=== PATIENT | male | born 1960 | race Caucasian/White ===

== ENCOUNTER 2023-07-21 07:08 | Inpatient (IN) ==
[2023-07-21] MEDS ORDERED: Al Hydrox/Mg Hydrox/Simet LIQ 30 ML UDC PO PRN (09:01)
[2023-07-21] MEDS: CAPLYTA 42 MG PO SCH (22:08)
[2023-07-22] MEDS: OLANZapine 5 mg TAB *ODT PO PRN (05:13)
[2023-07-22] MEDS: AUSTEDO 24 MG PO SCH (09:28)
[2023-07-22] MEDS: Aspirin EC 81 mg TAB.EC (enteric coated) PO SCH (09:29)
[2023-07-22] MEDS: CMC:Meloxicam 7.5 mg TAB (NF) PO SCH (10:22)
[2023-07-23 08:05] LABS: ABS Eosinophils 0.1 10^3/uL (0.0-0.5); ABS Lymphocytes 1.5 10^3/uL (1.0-4.8); ABS Monocytes 0.7 10^3/uL (0.0-1.1); ABS Neutrophils 6.3 10^3/uL (1.5-7.6); Eosinophil % 1.1 %; Hematocrit 37.5 % (38-53); Hemoglobin 12.7 g/dL (13.2-16.3); Lymphocyte % 17.7 %; Mean Corpuscular Hemoglobin 30.2 pg (27-33); Mean Corpuscular Hgb Conc 33.8 g/dL (31-36); Mean Corpuscular Volume 89.4 fL (80-97); Platelet Count 254 10^3/uL (150-450); Red Cell Distribution Width 16.3 % (12-17); White Blood Count 8.7 10^3/uL (3.6-10.2)
[2023-07-23 08:30] LABS: Albumin 3.7 g/dL (3.2-5.2); Albumin/Globulin Ratio 1.5 (1-3); Calcium 8.7 mg/dL (8.6-10.3); Creatinine, Serum 0.88 mg/dL (0.67-1.17); Globulin 2.4 g/dL (2-4); Potassium 4.4 mmol/L (3.5-5.0); Total Bilirubin 0.7 mg/dL (0.2-1.0); Total Protein 6.1 g/dL (6.4-8.9); eGFR CKD-EPI 96.6 (>60)
[2023-07-23 08:43] LABS: TSH Ultra Thyroid Stim Horm 0.57 mcIU/mL (0.34-5.60)
[2023-07-23 09:14] VITALS: BP 101/84
== END 2023-07-23 12:45 | disposition home or self-care (01) | DRG 885 ==
LOC: ED 07:08 → EDHOLD 09:01 → BSU 10:00
PROVIDERS: ADMIT Psychiatry & Neurology Psychiatry; ATTEND Student in an Organized Health Care Education/Training Program

== ENCOUNTER 2023-08-05 00:19 | Inpatient (IN) ==
[2023-08-05 01:19] LABS: ABS Basophils 0.1 10^3/uL (0.0-0.1); ABS Lymphocytes 1.6 10^3/uL (1.0-4.8); ABS Monocytes 0.8 10^3/uL (0.0-1.1); ABS Neutrophils 7.6 10^3/uL (1.5-7.6); ABS Nucleated RBC 0.01 10^3/ul; Eosinophil % 0.2 %; Hematocrit 38.1 % (38-53); Hemoglobin 12.9 g/dL (13.2-16.3); Lymphocyte % 15.9 %; Mean Corpuscular Hemoglobin 29.9 pg (27-33); Mean Corpuscular Hgb Conc 33.8 g/dL (31-36); Mean Corpuscular Volume 88.5 fL (80-97); Mean Platelet Volume 7.6 fL (7.5-11.2); Nucleated Red Blood Cells % 0.1 %/100WBC (0.0-0.8); Platelet Count 272 10^3/uL (150-450); Red Cell Distribution Width 16.6 % (12-17); White Blood Count 10.2 10^3/uL (3.6-10.2)
[2023-08-05 02:03] LABS: ALT 22 U/L (7-52); AST 21 U/L (13-39); Acetaminophen < 15 mcg/mL; Albumin 4.7 g/dL (3.2-5.2); Alcohol, S < 13 mg/dL (<13); Alkaline Phosphatase 104 U/L (35-149); Anion Gap 7 mmol/L (2-16); Blood Urea Nitrogen 9 mg/dL (6-24); CO2 Carbon Dioxide 30 mmol/L (22-32); Calcium 10.3 mg/dL (8.6-10.3); Chloride 99 mmol/L (101-111); Creatinine, Serum 0.86 mg/dL (0.67-1.17); Globulin 2.4 g/dL (2-4); Glucose 90 mg/dL (70-100); Salicylate < 2.50 mg/dL (<30); Sodium 136 mmol/L (135-145); Total Bilirubin 0.9 mg/dL (0.2-1.0); Total Protein 7.1 g/dL (6.4-8.9); eGFR CKD-EPI 97.3 (>60)
[2023-08-05 02:04] LABS: Urine Benzodiazepine Screen None Detected (None Detect); Urine Cannabinoids Screen None Detected (None Detect); Urine Opiates Screen None Detected (None Detect)
[2023-08-05 02:11] LABS: Urine Appearance Clear; Urine Bilirubin Negative (Negative); Urine Blood Negative (Negative); Urine Color Colorless; Urine Glucose Negative (Negative); Urine Ketones Negative (Negative); Urine Nitrite Negative (Negative); Urine Protein Negative (Negative); Urine Specific Gravity 1.004 (1.002-1.030); Urine Urobilinogen Negative (Negative)
[2023-08-05 02:16] LABS: TSH Ultra Thyroid Stim Horm 2.76 mcIU/mL (0.34-5.60)
[2023-08-05 03:11] LABS: Urine Bacteria Absent /HPF (Absent); Urine Red Blood Cell Absent /HPF (0-Trace); Urine Squamous Epithelial Cell Present /HPF (Absent); Urine White Blood Cell Trace(0-5/hpf) /HPF (0-Trace)
[2023-08-05] MEDS: Vitamin THERAPEUTIC TAB PO SCH (09:00)
[2023-08-05] MEDS: Meloxicam 7.5 mg TAB (NF) PO SCH (10:31)
[2023-08-05] MEDS: OLANZapine 10 mg TAB*ODT PO PRN (12:40)
[2023-08-05] MEDS: LUMATEPERONE 42 MG PO SCH (21:13)
[2023-08-05] MEDS: HYDROcodone/ACETAMIN 5/325 mg TAB PO PRN (23:17)
[2023-08-06] MEDS: DEUTETRABENAZINE 24 MG PO SCH ×2 (08:17→14:49)
[2023-08-06 08:53] LABS: HDL Cholesterol 45.5 mg/dL
[2023-08-06] MEDS: Paliperidone SUSTENNA 234 MG/1.5 ML IM ONE (13:00)
[2023-08-06] MEDS: Nicotine Lozenge mini 4 MG LOZNG.MINI MT PRN (23:21)
[2023-08-07] MEDS: Nicotine PATCH 21 MG/24 HR PATCH TRANSDERM SCH (07:55)
[2023-08-07] MEDS: Atropine 1% (ORAL/SL) 15 ML BTL SL PRN (20:28)
[2023-08-07] MEDS: Polyethylene Glycol 3350 17 GM PACKET PO PRN (22:15)
[2023-08-07] MEDS: Senna TAB 8.6 mg TAB PO ONE (22:15)
[2023-08-09] MEDS: Al Hydrox/Mg Hydrox/Simet LIQ 30 ML UDC PO PRN (20:16)
[2023-08-10] MEDS: Fluticasone NASAL SPRAY 50MCG 16 gm SPRAY BTL BOTH NARES SCH (13:40)
[2023-08-10] MEDS: Senna TAB 8.6 mg TAB PO SCH (13:40)
[2023-08-10] MEDS: CITRACAL PO SCH (13:40)
[2023-08-10] MEDS: BIOTIN 5 MG PO SCH (13:40)
[2023-08-10] MEDS: SPIRIVA Respimat (tiotropium) 2.5 mcg/inh Inhaler INH SCH (13:40)
[2023-08-11 08:39] VITALS: BP 140/62
== END 2023-08-11 13:20 | disposition home or self-care (01) | DRG 885 ==
LOC: ED 00:19 → EDHOLD 03:20 → BSU 04:32
PROVIDERS: ADMIT Psychiatry & Neurology Psychiatry; ATTEND Psychiatry & Neurology Psychiatry